=== PATIENT | male | born 1995 | race Hispanic/Latino ===

== ENCOUNTER 2024-12-19 17:00 | Emergency (ER) | payer SELFPAY ==
[2024-12-19 17:11] VITALS: BP 136/85; PULSE 89; RESP 16; TEMP 36.3; O2SAT 99; BMI 28.9
[2024-12-19 17:41] LABS: Alanine Aminotransferase 49 IU/L (<50); Albumin 4.9 g/dL (3.5-5.0); Albumin Globulin Ratio 1.3 (1.0-2.8); Alkaline Phosphatase 88 U/L (38-126); Blood Urea Nitrogen 11 mg/dL (9-20); Calcium 9.6 mg/dL (8.4-10.2); Carbon Dioxide 27 mmol/L (22-32); Chloride 102 mmol/L (98-107); Estimated Glomerular Filt Rate > 60 mL/min (>60); Globulin 3.9 g/dL (1.7-4.1); Glucose 104 mg/dL (70-99); HEMOLYSIS < 15 (0-50); Lipase 104 U/L (23-300); Potassium 4.0 mmol/L (3.4-5.1); Sodium 140 mmol/L (137-145); Total Protein 8.8 g/dL (6.3-8.2)
[2024-12-19 18:34] LABS: Add Manual Diff / Slide Review NO; Hematocrit 43.7 % (41-53); Hemoglobin 15.5 g/dL (13.5-17.5); Lymphocytes Absolute Auto 2500 /uL (1100-4500); Mean Corpuscular HGB Conc 35.4 % (30-36); Mean Corpuscular Hemoglobin 30.8 PG (26-34); Mean Corpuscular Volume 87.0 fL (80-100); Platelet Count 319 X10^3/uL (150-400)
--- NOTE | 2024-12-19 22:21 | EKG_ITS ---
[address] [address] Test Date: 2024-12-19 Pat Name: Sebastián Metcalf Department: [facility] Room: Gender: Male Manager Policy: PAM : 1995 Requested By: Order Number: [id number] Reading MD: Yamil Israel Measurements Intervals [place] Rate: 76 P: 69 MI: 130 QRS: 79 QRSD: 86 T: 32 QT: 360 QTc: 405 Interpretive Statements Normal sinus rhythm with sinus arrhythmia Electronically Signed On 12-30-2024 13:33:40 PDT by Yamil Israel
--- NOTE | 2024-12-19 23:04 | ED_ITS ---
HPI - Nausea/Vomiting/Diarrhea General Chief complaint: Nausea/Vomiting/Diarrhea Stated complaint: indigestion, migraines N/V Time Seen by Provider: 12/19/24 22:55 Source: patient and family Mode of arrival: Ambulatory History of Present Illness HPI Narrative: (Kiswahili-speaking, history via translation from at bedside, offered professional online translation services, declined) 29-year-old male reports history of acid gastritis diagnosis in [place] 1 year ago, took omeprazole for 2 weeks and seemed to get better, now having intermittent one-week duration of epigastric area discomfort with some throat discomfort as well. No recent antacids tried. No black or red stools red no fevers or chills. No nausea or vomiting. No prior endoscopic evaluations. Related Data Previous Rx's ?Medication ?Instructions ?Recorded omeprazole 20 mg capsule,delayed 20 mg PO DAILY upper abdominal 12/19/24 release pain 30 days #30 caps Allergies Allergy/AdvReac Type Severity Reaction Status Date / Time No Known Drug Allergies Allergy Verified 12/19/24 17:07 Patient History Social History Smoking Status: Never smoker Smoking Status: Never smoker Exam Narrative Exam Narrative: GENERAL: Well-developed patient, in mild distress. HEAD: Atraumatic. Normocephalic. EYES: Pupils equal round and reactive. Extraocular motions intact. No scleral icterus. No injection or drainage. ENT: Nose without bleeding, purulent drainage. Airway patent. NECK: Trachea midline. Moves neck well. CARDIOVASCULAR: Regular rate and rhythm without murmurs, gallops, or rubs. RESPIRATORY: Clear to auscultation. Breath sounds equal bilaterally. No wheezes, rales, or rhonchi. GASTROINTESTINAL: Abdomen soft, non-tender, nondistended. EXTREMITIES: No edema or joint tenderness. BACK: Nontender without deformity or crepitance. No flank tenderness. NEURO: AOx3. Motor functions grossly nonfocal. SKIN: No rash or erythema of visible areas Initial Vital Signs Initial Vital Signs: Vital Signs Temperature 97.3 F L 12/19/24 17:11 Pulse Rate 89 12/19/24 17:11 Respiratory Rate 16 12/19/24 17:11 Blood Pressure 136/85 12/19/24 17:11 Pulse Oximetry 99 12/19/24 17:11 Oxygen Delivery Method Room Air 12/19/24 17:11 Course Orders Ordered: ED Orders 12/19/24 22:31 Urine Microscopic Stat Discontinued Medications Ondansetron HCl (Ondansetron 4 Mg/2 Ml Inj) 4 mg IV NOW PRN PRN Reason: Nausea And Vomiting Ondansetron HCl (Ondansetron 4 Mg Odt) 4 mg PO NOW PRN PRN Reason: Nausea And Vomiting Pantoprazole Sodium (Pantoprazole Dr 20 Mg Tablet) 20 mg PO NOW ONE Stop: 12/19/24 23:10 Last Admin: 12/19/24 23:25 Dose: 20 mg Documented By: EVELYN Vital Signs Vital signs: Vital Signs - 8 hr 12/19/24 23:33 Pulse Rate 68 Respiratory Rate 17 Blood Pressure 141/90 H Pulse Oximetry 99 Oxygen Delivery Method Room Air MDM - Nausea/Vomiting/Diarrhea Lab Data Attestation: I reviewed the patient's lab results. Lab results narrative: White blood cell count 7500, hemoglobin 15.5, platelets adequate. BMP not unremarkable. Liver functions negative. Lipase normal. Urine dip negative. 12/19/24 17:22 12/19/24 17:22 Labs: Lab Results 12/19/24 12/19/24 Range/Units 17:22 22:31 WBC 7.5 (4.5-11.0) X10^3/uL RBC 5.02 (4.5-5.9) X10^6/uL Hgb 15.5 (13.5-17.5) g/dL Hct 43.7 (41-53) % MCV 87.0 (80-100) fL MCH 30.8 (26-34) PG MCHC 35.4 (30-36) % RDW 13.4 (11.6-14.8) % Plt Count 319 (150-400) X10^3/uL Neut % (Auto) 59.0 (50-75) % Lymph % (Auto) 33.5 (25-40) % [place] % (Auto) 5.8 (3-14) % Eos % (Auto) 1.4 L (2-4) % Baso % (Auto) 0.3 (0-2) % Neut # (Auto) 4500 (3252-9328) /uL Lymph # (Auto) 2500 (8176-8297) /uL [place] # (Auto) 400 (0-900) /uL Eos # (Auto) 100 (0-450) /uL Baso # (Auto) 0 (0-100) /uL Sodium 140 (137-145) mmol/L Potassium 4.0 (3.4-5.1) mmol/L Chloride 102 (98-107) mmol/L Carbon Dioxide 27 (22-32) mmol/L BUN 11 (9-20) mg/dL Creatinine 0.95 (0.66-1.25) mg/dL Estimated GFR > 60 (>60) mL/min BUN/Creatinine Ratio 11.6 (6-22) Glucose 104 H (70-99) mg/dL Calcium 9.6 (8.4-10.2) mg/dL Total Bilirubin 0.7 (0.2-1.3) mg/dL AST 34 (17-59) IU/L ALT 49 (<50) IU/L Alkaline Phosphatase 88 (38-126) U/L Total Protein 8.8 H (6.3-8.2) g/dL Albumin 4.9 (3.5-5.0) g/dL Globulin 3.9 (1.7-4.1) g/dL Albumin/Globulin Ratio 1.3 (1.0-2.8) Lipase 104 (23-300) U/L Urine RBC 1-5/hpf (0-5/HPF) Urine WBC None seen (0-5/HPF) Ur Squamous Epith Cells 0-1 /hpf (0-5/HPF) Amorphous Sediment 3+ Urine Bacteria None seen (None) Ur Culture Indicated? Cult not indicated Vol Urine Centrifuged 10ml (spun) Urine Dip Bedside Urine Glucose Negative Bedside Urine Bilirubin - Negative Bedside Urine Ketone - Negative Urine Specific [place] 1.010 Bedside Urine Occult Blood ++ Bedside Urine pH 7.5 Bedside Urine Protein - Negative Bedside Urine Urobilinogen - Negative Bedside Urine Nitrite - Negative Bedside Urine Leukocytes - Negative Esterase ECG Data Attestation: I personally reviewed and interpreted this ECG as follows: Interpretation: 2221, normal sinus rhythm with sinus arrhythmia, rate 76. No obvious ST segment elevation or depression changes. [place] 130, QRS 86, QTC 405. [facility] Narrative Medical decision making narrative: 29-year-old male with history of gastritis treated with omeprazole for 2 weeks about 1 year ago in [place], now having dyspepsia symptoms, some throat discomfort, and belching. No recent trial of any antacids. Unremarkable examination, no distress. EKG and labs sent from triage. EKG done at triage, no obvious acute ischemic changes. Lab data: White blood cell count 7500, hemoglobin 15.5, platelets adequate. BMP not unremarkable. Liver functions negative. Lipase normal. Urine dip negative. Trial of antacid, given oral dose pantoprazole here. Prescription for omeprazole sent to their pharmacy, though they were informed they can obtain this [id number]. Given contact information for hospital primary care clinic, to establish care. Consider upper endoscopy if not improving on antacid therapy, or if recurrence of symptoms after completion of antacid 1 month trial. Return precautions discussed. Home with family. Discharge Plan Departure Patient Disposition: Home Clinical Impression: Gastro-esophageal reflux Instructions: DI for Gastroesophageal Reflux Disease (GERD) Activity Restrictions/Additional Instructions: Epigastric area discomfort with occasional discomfort in the throat, suspicious for acid gastroesophageal reflux. Previous response to omeprazole in [place] last year. No recent antibiotic use. Pantoprazole dose given in the emergency department. Suggestion for use of omeprazole 1 tablet daily for the next 1 month. Consider upper endoscopy if not improved in the next week, or more recurrence after course of therapy completed. Advised follow up with your regular provider. Avoidance of alcohol, aspirin, motrin, naproxen, carbonated beverage, acidic beverages and spicy foods might help control acid reflux symptoms. Avoidance of caffeine products might also help, such as coffee and caffeinated teas and chocolates. Return to this/nearest emergency department for any change worsening symptoms or any concerns prior. Omeprazole antacid is available [id number], but prescription sent to your requested pharmacy, to help guide obtaining the correct dose induration and supply. Call phone number [phone], to establish with a primary care provider via [facility]. Prescriptions: New omeprazole 20 mg capsule,delayed release(DR/EC) 20 mg PO DAILY 30 Days Qty: 30 0RF Stand Alone Forms: Patient Portal/API
[2024-12-19] MEDS: PANTOPRAZOLE DR 20 MG TABLET PO (23:25)
[2024-12-19 23:33] VITALS: BP 141/90; PULSE 68; RESP 17; O2SAT 99
[2024-12-19 23:50] LABS: Culture Indicated Urine Cult Not Indicated
== END 2024-12-19 23:37 | disposition home or self-care (01) ==
PROVIDERS: Family Medicine; Emergency Provider Emergency Medicine
DX: K21.9 Gastro-esophageal reflux disease without esophagitis (principal); I49.9 Cardiac arrhythmia, unspecified; Z87.19 Personal history of other diseases of the digestive system
CPT/HCPCS: 80053; 81003; 81015; 83690; 85025; 93005; 99283; 99284